=== PATIENT | female | born 1985 | race Two or more races ===

== ENCOUNTER 2021-12-04 00:33 | Emergency (ER) | payer MEDICAID, OTHER ==
[~2021-12-04] VITALS: Ht 175.3 cm; Wt 104.5 kg
[2021-12-04 00:53] VITALS: BP 156/99
== END 2021-12-04 02:46 | disposition left against medical advice (07) ==
LOC: ER 00:39
DX: S09.8XXA Other specified injuries of head, initial encounter (principal); Z53.21 Procedure and treatment not carried out due to patient leaving prior to being seen by health care provider; V43.62XA Car passenger injured in collision with other type car in traffic accident, initial encounter; Y93.89 Activity, other specified; Y92.89 Other specified places as the place of occurrence of the external cause; Y99.8 Other external cause status

== ENCOUNTER 2023-07-23 21:02 | Observation (INO) | payer MEDICAID ==
[~2023-07-23] VITALS: Ht 175.3 cm; Wt 115.7 kg
== END 2023-07-23 22:19 | disposition home or self-care (01) ==
LOC: LDRP 21:02
PROVIDERS: ADMIT Obstetrics & Gynecology; ATTEND Obstetrics & Gynecology
DX: O62.9 Abnormality of forces of labor, unspecified (principal); O26.892 Other specified pregnancy related conditions, second trimester; R10.2 Pelvic and perineal pain; Z3A.23 23 weeks gestation of pregnancy
CPT/HCPCS: 59025; 81002; 94760; G0378

== ENCOUNTER 2023-12-24 05:20 | Emergency (ER) | payer MEDICAID ==
[~2023-12-24] VITALS: Ht 172.7 cm; Wt 107.5 kg
--- NOTE | 2023-12-24 06:34 | ED.PDOC ---
History of Present Illness(SKN HPI Comments 38 year old w/ no medical presents for allergic reaction Started last night at 10 pm and worsened around 3 am C/o itching Possible cause: avocado for dinner Tried Benadryl w/ no improvement Denies chest pain shortness of breath Also complains of a possible external hemorrhoid C/o bright red blood after wiping Started 2 days ago Denies fevers chills night sweats unintentional weight loss Denies nausea vomiting diarrhea Denies sick contact with similar symptoms Denies new foods/medications Denies family history of GI cancer Denies urgency, frequency, hematuria Denies vaginal discharge Chief Complaint: Rash Time Seen by MD: 06:29 History of Present Illness: Nurses Notes, Medications, Allergies Allergies: Coded Allergies: NO KNOWN ALLERGIES (Unverified , 07/23/23) Home Meds No Active Prescriptions or Reported Meds Information Source: Patient Mode of Arrival: Ambulatory Family History Family History: Reviewed,noncontributory to illness Social History Smoker: Non-Smoker Alcohol: Denies ETOH Use Drugs: Denies Drug Use All Other Systems: Reviewed and Negative (Per HPI) Physical Exam General Appearance: No Apparent Distress, Normal HEENT: Normal ENT Inspection, Pharynx Normal, TMs Normal Neck: Full Range of Motion, Non-Tender, Normal, Normal Inspection Respiratory: Chest Non-Tender, Lungs Clear, No Accessory Muscle Use, No Respiratory Distress, Normal Breath Sounds Cardiovascular: No Edema, No JVD, No Murmur, No Gallop, Normal Peripheral Pulses, Regular Rate/Rhythm Breast Exam: Deferred Gastrointestinal: No Organomegaly, Non Tender, No Pulsatile Mass, Normal Bowel Sounds, Soft Genitalia: Deferred Pelvic: Deferred Rectal: Hemorrhoids (External hemorrhoids. 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 Was a procedure done?: No Differential Diagnosis (INTG) Differential Diagnosis: Abrasion, Cellulitis, Other X-Ray, Labs, Meds, VS Vital Signs Date Time Temp Pulse Resp B/P (MAP) Pulse Ox O2 Delivery O2 Flow Rate FiO2 12/24/23 06:58 72 18 99 Room Air 12/24/23 06:58 97.7 72 18 145/97 (113) 99 97.7 12/24/23 05:35 97.7 72 18 145/97 (113) 99 Current Medications Medications (Trade) Dose Ordered Sig/Jarrell Route Start Time Stop Time Status Last Admin Methylprednisolone Sodium Succinate (Solu Medrol) 125 mg ONCE ONCE IV 12/24/23 06:45 12/24/23 06:46 DC 12/24/23 06:56 Famotidine (Pepcid Injection) 20 mg ONCE ONCE IV 12/24/23 06:45 12/24/23 06:46 DC 12/24/23 06:56 Loratadine (Claritin Tablet) 10 mg ONCE ONCE PO 12/24/23 06:45 12/24/23 06:46 DC 12/24/23 06:56 X-Ray, Labs, Meds, VS Comment Pt presents ED for an allergic reaction. Solu-Medrol and Pepcid administered in ED for treatment. Patient reports significant improvement in symptoms following treatment. Patient was monitored in the ED for an extended amount of time. EpiPen prescribed. Education provided on possible side effects of medication Patient was instructed to use calamine lotion as needed for itchiness Follow-up with PCP in 1 to 2 days. Patient needs esl instructor referral for further testing Return to ED if symptoms persist, or sooner if symptoms worsen On reevaluation, patient had symptomatic improvement. Patient is stable for discharge at this time. External notes reviewed. Test results and diagnostic imaging interpreted. All diagnostic findings, discharge care, education and instructions provided Follow-up with PCP in 2 to 3 days Patient verbalized understanding and agreed to treatment plan Vital signs stable, afebrile, no acute distress noted Patient ambulatory with strong steady gait Advised to return precautions for any new or worsening symptoms, return to ER immediately for re-evaluation Patient is aware that the purpose of this visit was for an acute medical emergency requiring emergent stabilization. Chronic conditions, including malignancies have not been ruled out. Patient is instructed to follow up with PCP as directed and discharge instructions for continued care and workup. If unable to arrange follow-up, patient is to return to the emergency department for reassessment. Patient (parent or legal guardian if applicable) was given verbal and written discharge instructions and acknowledges understanding. Time of 1ST Reevaluation: 08:03 Reevaluation 1ST: Improved Patient Education/Counseling: Diagnosis, Treatment Family Education/Counseling: Diagnosis, Treatment Departure 1 Departure Time of Disposition: 08:04 Impression: Primary Impression: External hemorrhoid Additional Impression: Hives Disposition: 01 HOME / SELF CARE / HOMELESS Condition: Fair e-Prescriptions Hydrocortisone Acetate (Anusol-Hc) 25 Mg Sup [address] BID for 7 Days, #14 SUPP 0 Refills Prov: ELVIS YUEN NP 12/24/23 Cetirizine Hcl (Cetirizine Hcl) 5 Mg Tab 10 MG PO DAILYP PRN for 30 Days, #60 TAB 0 Refills Prov: ELVIS YUEN NP 12/24/23 Discharged With: Self Critical Care Note Critical Care Time?: No Stability Stability form required: No Heart Score Heart Score: Heart Score Response (Comments) Value History N/A 0 EKG N/A 0 Age N/A 0 Risk Factors N/A 0 Troponin N/A 0 Total 0 ELVIS YUEN NP Dec 24, 2023 06:34
[2023-12-24] MEDS: LORATADINE 10 MG TAB PO ONE (06:56)
[2023-12-24] MEDS: FAMOTIDINE (10MG/ML) 2ML VL IV ONE (06:56)
[2023-12-24] MEDS: methylPREDNISolone SOD SUCC 125 MG/2 ML VL IV ONE (06:56)
[2023-12-24 06:58] VITALS: BP 145/97; PULSE 72; RESP 18; TEMP 97.7; O2SAT 99
[2023-12-24] MEDS ORDERED: HYDR25SU21 PR (08:06)
[2023-12-24] MEDS ORDERED: CETI5TAB6 PO (08:06)
== END 2023-12-24 08:13 | disposition home or self-care (01) ==
LOC: ER 05:20
DX: K64.4 Residual hemorrhoidal skin tags (principal); L50.9 Urticaria, unspecified
CPT/HCPCS: 96374; 96375; 99284; J2919; J3490